=== PATIENT | male | born 1985 | race Caucasian/White ===

== ENCOUNTER 2018-07-14 00:12 | Emergency (ER) | payer OTHER ==
[2018-07-14] MEDS ORDERED: HYDROMORPHONE HCL 1 MG/ML SYRINGE IVP ONE ×2 (00:20→00:50)
[2018-07-14] MEDS ORDERED: diphenhydrAMINE 50 MG/ML VIAL IVP ONE ×2 (01:20→04:30)
[2018-07-14] MEDS ORDERED: APAP/HYDROCODONE 325/5 TAB PO ONE ×2 (03:10→08:15)
--- NOTE | 2018-07-14 04:04 | ER Report ---
History and Physical Time Seen By MD: 00:12 Hx. 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 Patient's history is significant for testicular torsion on 07/08. Patient underwent surgical correction of his torsion at [facility] in [place], [place]. Patient was discharged from a hospital of prescription for pain medication and Bactrim. He was traveling back to [place] when he began to develop testicular pain around 3 PM. He describes it developing quite rapidly into severe right testicular pain. He states it feels like testicular torsion. Patient was transferred over for a testicular ultrasound and neurologic consultation if he has a recurrence of his torsion. Patient notes swelling of his right scrotum in severe pain. He describes 10 out of 10. He received Dilaudid prior to transfer received an additional 8 mg and Benadryl 25 mg in route by EMS. REVIEW OF SYSTEMS: Respiratory: No cough, no dyspnea. Cardiovascular: No chest pain, no palpitations. Gastrointestinal: As above Musculoskeletal: No back pain. (JACINTA MCCLELLAN DO) Allergies: Coded Allergies: Penicillins (Verified Allergy, Intermediate, 07/14/18) lidocaine (Verified Allergy, Mild, 07/14/18) fentanyl (Verified Adverse Reaction, Unknown, 07/14/18) Agitation Home Meds Active Scripts Oxycodone Hcl/Acetaminophen (PERCOCET 5-325 MG TABLET) 1 Each Tablet, 1-2 EACH PO Q4-6H PRN for PAIN, #20 Prov:JACINTA MCCLELLAN DO 07/14/18 Tramadol Hcl (TRAMADOL HCL) 50 Mg Tablet, 1-2 TAB PO Q4-6H PRN for PAIN, #30 MG TAKE ONE TO TWO TABLETS BY MOUTH EVERY FOUR TO SIX HOURS NEEDED Prov:JACINTA MCCLELLAN DO 07/14/18 Reviewed Nurses Notes: Yes Old Medical Records Reviewed: Yes (JACINTA MCCLELLAN DO) Constitutional Vital Sign - Last 24 Hours 07/14/18 07/14/18 07/14/18 07/14/18 00:12 00:30 01:00 01:30 Pulse 104 B/P (MAP) 120/103 (109) 124/90 (101) 122/92 (102) Pulse Ox 87 07/14/18 07/14/18 07/14/18 07/14/18 02:00 02:05 04:37 04:45 Pulse 86 94 B/P (MAP) 119/86 (97) 141/93 (109) Pulse Ox 96 97 07/14/18 06:27 Pulse 77 Pulse Ox 92 ([facility] Physical Exam General Appearance: The patient is alert, has no immediate need for airway protection and no current signs of toxicity. Vital signs stable, afebrile, pulse ox normal. Moderate distress Eyes: Pupils equal and round no injection. Respiratory: Chest is non tender, lungs are clear to auscultation. Cardiac: regular rate and rhythm Gastrointestinal: Abdomen is soft and non tender, no masses, bowel sounds normal. Genitals: Circumcised male genitalia, the right scrotum appears grossly swollen to twice its normal size. It is very tender to palpation. There is cyanotic hue. The incision in the bottom of the scrotum is intact without evidence of infection or induration. Musculoskeletal: Neck: Neck is supple and non tender. No lymphadenopathy Extremities have full range of motion and are non tender. Skin: No rashes or lesions. DIFFERENTIAL DIAGNOSIS: After history and physical exam differential diagnosis was considered for testicular pain including but not limited to epididymitis, orchitis, referred pain from kidney stone, inguinal hernia, postoperative pain, postoperative hemorrhage and torsion of the testicle. (JACINTA MCCLELLAN DO) Medical Decision Making EKG/Imaging Imaging Results: Ultrasound of the testicular ultrasound was obtained. The results of the study are The study was read by the radiologist. I viewed the images myself on the PACS system. (JACINTA MCCLELLAN DO) ED Course/Re-evaluation Clinical Indication for ER IV: Hydration, IV Access ED Course Patient was admitted to an examination room. H&P was done. A testicular ultrasound was performed. Patient was medicated for his discomfort. The ultrasound shows intact flow to the right testicle. There is a large collection of fluid consistent with a postoperative hematoma. The likely cause of the patient's pain. Patient had significant itching with morphine in route. Patient's ultrasound was unremarkable for torsion. Patient was require opiate pain relievers. He normally takes tramadol. Patient's had itching with each dose of opiate pain relievers. He has no hives, throat swelling sensation. He will likely need to take Benadryl with this pain relievers. Decision to Disposition Date: Jul 14, 2018 Decision to Disposition Time: 04:02 (JACINTA MCCLELLAN DO) ED Course Patient with scrotal hematoma, awaiting his ride. Pain was resuming, so another dose of pain medicine was provided. (FREIDA AMADO MD) Depart Departure Latest Vital Signs Vital Signs Date Time Temp Pulse Resp B/P (MAP) Pulse Ox O2 Delivery O2 Flow Rate FiO2 07/14/18 06:27 77 92 07/14/18 04:37 141/93 (109) (FREIDA AMADO MD) Impression: Primary Impression: Postoperative hematoma Additional Impressions: Torsion of right testicle Adverse drug reaction Condition: Improved Disposition: HOME OR SELF-CARE New Scripts Oxycodone Hcl/Acetaminophen (PERCOCET 5-325 MG TABLET) 1 Each Tablet 1-2 EACH PO Q4-6H PRN for PAIN, #20 Prov: JACINTA MCCLELLAN DO 07/14/18 Tramadol Hcl (TRAMADOL HCL) 50 Mg Tablet 1-2 TAB PO Q4-6H PRN for PAIN, #30 MG TAKE ONE TO TWO TABLETS BY MOUTH EVERY FOUR TO SIX HOURS NEEDED Prov: JACINTA MCCLELLAN DO 07/14/18 Patient Instructions: Hematoma (ED) Additional Instructions: Use tramadol and ibuprofen for pain relief Do not mix tramadol and Percocet, you must separate them by 4-6 hours at a minimum Take ibuprofen 600 mg every 6 hours with food Take Benadryl 25 mg with opiate pain relievers as needed to prevent itching Elevate your scrotum apply ice packs for 2 days then try heating pad Problem Qualifiers Primary Impression: Postoperative hematoma Surgical complication system/body Area: genitourinary Procedure type: genitourinary Qualified Codes: N99.840 - Postprocedural hematoma of a genitourinary system organ or structure following a genitourinary system procedure Additional Impressions: Adverse drug reaction Encounter type: initial encounter Qualified Codes: T50.905A - Adverse effect of unspecified drugs, medicaments and biological substances, initial encounter JACINTA MCCLELLAN DO Jul 14, 2018 04:04 FREIDA AMADO MD Jul 14, 2018 11:08
[2018-07-14 04:37] VITALS: BP 141/93
[2018-07-14] MEDS ORDERED: TRAM-420 PO (04:50)
[2018-07-14] MEDS ORDERED: OXYC-865 PO (04:50)
[2018-07-14] MEDS ORDERED: KETOROLAC 30 MG/ML VIAL IVP ONE (06:20)
== END 2018-07-14 11:28 | disposition home or self-care (01) ==
LOC: ER 01:04
DX: N99.840 Postprocedural hematoma of a genitourinary system organ or structure following a genitourinary system procedure (principal); T50.905A Adverse effect of unspecified drugs, medicaments and biological substances, initial encounter
CPT/HCPCS: 76870; 96374; 96375; 96376; 99284; J1170; J1200; J1885